=== PATIENT | male | born 2000 | race Caucasian/White ===

== ENCOUNTER 2022-11-05 15:23 | Emergency (ER) | payer BC ==
[2022-11-05 15:49] VITALS: BP 119/56; PULSE 69; RESP 18; TEMP 98.2; BMI 25.9
[2022-11-05] MEDS ORDERED: ACETAMINOPHEN 500 MG TABLET (FP) PO ONE (17:48)
[2022-11-05] MEDS ORDERED: ACETAMINOPHEN 500 MG TABLET (FP) ONE (17:58)
== END 2022-11-05 18:25 | disposition home or self-care (01) ==
LOC: JERFT 15:23
DX: M25.511 Pain in right shoulder (principal); X50.9XXA Other and unspecified overexertion or strenuous movements or postures, initial encounter; Y93.67 Activity, basketball
CPT/HCPCS: 73030-TC-RT-FY